=== PATIENT | male | born 1995 | race Caucasian/White ===

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

== ENCOUNTER → 2017-06-23 | Outpatient (CLI) | payer OTHER | LOC: FIMAGING 09:02 | PROVIDERS: ATTEND Internal Medicine | DX: R63.0 Anorexia (principal); K21.9 Gastro-esophageal reflux disease without esophagitis ==